=== PATIENT | female | born 1935 | race African-American/Black ===

== ENCOUNTER 2019-07-30 09:52 | Emergency (ER) | payer MEDICARE, BC ==
[2019-07-30] MEDS ORDERED: HYDROcodone/Acetaminophen 5/325 mg Tablet ONE (11:53)
--- NOTE | 2019-08-01 07:28 | RAD ---
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 There is no evidence of airspace density, pulmonary edema , or pneumothorax. There is no cardiomegaly or pleural effusion. Subsegmental atelectasis or pulmonary scar at anterior segment of left upper lobe or lingula. IMPRESSION: 1) No significant acute cardiopulmonary findings. 2) ectasia of thoracic aorta. 3)Subsegmental atelectasis or pulmonary scar at anterior segment of left upper lobe or lingula.
== END 2019-07-30 13:13 | disposition home or self-care (01) ==
LOC: ERS 09:52
DX: M10.9 Gout, unspecified (principal); R05 Cough; I10 Essential (primary) hypertension; Z79.899 Other long term (current) drug therapy; Z79.84 Long term (current) use of oral hypoglycemic drugs
CPT/HCPCS: 71046

== ENCOUNTER 2019-08-18 09:18 | Emergency (ER) | payer MEDICARE, BC ==
[2019-08-18] MEDS ORDERED: HYDROcodone/Acetaminophen 5/325 mg Tablet ONE (12:51)
--- NOTE | 2019-08-18 13:20 | RAD ---
EXAM: Left foot 3 views: HISTORY: Pain and swelling, history of gout COMPARISON: None FINDINGS: Generalized soft tissue swelling with some more focal swelling medially at the first metatarsophalang eal joint. 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 These bony changes could be related to gout. No acute fracture or dislocation or other significant acute osseous abnormality. IMPRESSION: Soft tissue swelling. No acute fracture or dislocation.
== END 2019-08-18 13:40 | disposition home or self-care (01) ==
LOC: ERS 09:18
DX: M10.9 Gout, unspecified (principal); E11.9 Type 2 diabetes mellitus without complications; I10 Essential (primary) hypertension; Z79.899 Other long term (current) drug therapy; Z79.84 Long term (current) use of oral hypoglycemic drugs

== ENCOUNTER 2023-07-04 16:33 | Inpatient (IN) | payer BC, MEDICARE, SELFPAY ==
[~2023-07-04 16:33] MED LIST: Iopamidol-370 76% 500 ML MDV (1 ML CHARGE) ONE
[2023-07-04 17:37] LABS: #Eosinphils 0.1 thou/uL (0.0-0.7); #Monocytes 0.9 thou/uL (0.11-0.59); #Neutrophils 9.6 thou/uL (1.40-6.50); %Basophils 0.1 % (0.0-1.0); %Eosinophils 0.4 % (0.0-10.0); %Lymphocytes 11.4 % (21.0-51.0); %Monocytes 7.5 % (0.0-10.0); %Neutrophils 80.1 % (42.0-75.0); Hematocrit 30.7 % (36.0-47.0); Hemoglobin 10.4 g/dL (12.0-16.0); Mean Corpuscular HGB CONC 33.9 g/dL (32.0-36.0); Mean Corpuscular Hemoglobin 28.3 pg (27.0-31.0); Mean Corpuscular Volume 83.4 fl (78.0-98.0); Mean Platelet Volume 10.3 fL (7.4-10.4); Platelet Count 235 10x3/uL (130-400); RBC Distribution Width 14.2 % (11.5-14.5); Red Blood Cell (RBC) Count 3.68 mill/uL (4.20-5.40)
[2023-07-04 18:03] LABS: Troponin I 0.051 ng/mL (< 0.028)
[2023-07-04 18:05] LABS: ALT (SGPT) 7 U/L (8-55); AST (SGOT) 22 U/L (5-34); Albumin 3.8 g/dL (3.4-4.8); Alkaline Phosphatase 86 U/L (40-110); Anion Gap 16 mmol/L (10-20); BUN (Urea Nitrogen) 18 mg/dL (9.8-20.1); Bilirubin, Total 0.6 mg/dL (0.2-1.2); Calc. Creatinine Clearance 0 mL/min (70-130); Calcium 8.7 mg/dL (7.8-10.44); Carbon Dioxide 25 mmol/L (23-31); Chloride 96 mmol/L (98-107); Estimated GFR 33; Globulin 4.3 g/dL (2.4-3.5); Glucose 339 mg/dL (83-110); Lipase 7 U/L (8-78); Potassium 3.5 mmol/L (3.5-5.1); Protein, Total 8.1 g/dL (5.8-8.1); Sodium 133 mmol/L (136-145)
[2023-07-04] MEDS ORDERED: Acetaminophen 500 MG TAB ONE (18:29)
[2023-07-04] MEDS ORDERED: cefTRIAXone (ROCEPHIN) 2 GM VIAL ONE (18:29)
[2023-07-04] MEDS ORDERED: Azithromycin 500 MG VIAL ONE (18:30)
[2023-07-04 19:46] LABS: SARS-CoV-2 NAA Rapid Test Not Detected (NotDetected)
[2023-07-04] MEDS ORDERED: Aspirin Chewable 81 MG TAB ONE (19:48)
[2023-07-04] MEDS ORDERED: Labetalol HCl 100 MG/20 ML VIAL ONE (19:49)
[2023-07-04] MEDS ORDERED: Dextrose 50% Abboject 50 ML SYRINGE SLOW IVP PRN (19:58)
[2023-07-04] MEDS ORDERED: Glucagon 1 MG/ML KIT IM PRN (19:58)
[2023-07-04] MEDS ORDERED: Dextrose 5% in Water 1,000 ML IV PRN (19:58)
[2023-07-04] MEDS ORDERED: Acetaminophen 325 MG TAB PO PRN (20:00)
[2023-07-04] MEDS ORDERED: Ondansetron ODT 4 MG TAB SL PRN (20:00)
[2023-07-04] MEDS ORDERED: Ondansetron PF 4 MG/2 ML Vial IVP PRN (20:00)
[2023-07-04] MEDS ORDERED: Ipratropium/Albuterol 3 ML NEB ONE (20:03)
[2023-07-04] MEDS ORDERED: Sodium Chloride 0.9% 1,000 ML IV SCH (20:15)
[2023-07-05] MEDS ORDERED: Ipratropium/Albuterol 3 ML NEB ONE ×3 (00:19→13:31)
[2023-07-05] MEDS: Ipratropium/Albuterol 3 ML NEB NEB SCH ×4 (00:21→19:08)
[2023-07-05 00:28] LABS: Critical Call Chem Troponin I NUR.SM26@0028; Troponin I 0.328 ng/mL (< 0.028)
[2023-07-05 00:34] LABS: Bacteria/HPF None Seen HPF (None Seen); Bilirubin Negative (Negative); Blood, Urine Negative (Negative); CAUTI Indications for Culture Alt mental st,lethar; Clarity Clear (Clear); Glucose, Urine (Dipstick) 30 mg/dL (Negative); Ketone, Urine Negative (Negative); Leukocyte Negative Leu/uL (Negative); Nitrite Negative (Negative); Protein, Urine (Dipstick) 30 mg/dL (Neg-Trace); RBC/HPF 0-3 HPF (0-3); Specific Gravity, Urine 1.016 (1.002-1.036); Squamous Epithelial 0-3 HPF (0-3); Urobilinogen Normal mg/dL (Less than 2); WBC/HPF 0-3 HPF (0-3); pH, Urine 6.5 (5.0-9.0)
[2023-07-05 00:36] LABS: Urine Culture Reflex No No
[2023-07-05 01:16] VITALS: BMI 34.4
[2023-07-05] MEDS ORDERED: Heparin 5,000 UNITS/ML VIAL ONE (02:31)
[2023-07-05] MEDS: Heparin 5,000 UNITS/ML VIAL SC SCH ×3 (02:48→22:18)
[2023-07-05 04:05] LABS: #Eosinphils 0.1 thou/uL (0.0-0.7); #Monocytes 1.1 thou/uL (0.11-0.59); #Neutrophils 8.5 thou/uL (1.40-6.50); %Basophils 0.1 % (0.0-1.0); %Eosinophils 0.5 % (0.0-10.0); %Lymphocytes 16.8 % (21.0-51.0); %Monocytes 9.8 % (0.0-10.0); %Neutrophils 72.4 % (42.0-75.0); Hematocrit 27.1 % (36.0-47.0); Hemoglobin 9.1 g/dL (12.0-16.0); Mean Corpuscular HGB CONC 33.6 g/dL (32.0-36.0); Mean Corpuscular Volume 83.4 fl (78.0-98.0); Mean Platelet Volume 9.7 fL (7.4-10.4); Platelet Count 196 10x3/uL (130-400); RBC Distribution Width 14.2 % (11.5-14.5); Red Blood Cell (RBC) Count 3.25 mill/uL (4.20-5.40); White Blood Cell (WBC) Count 11.7 10x3/uL (4.8-10.8)
[2023-07-05 04:29] LABS: Anion Gap 13 mmol/L (10-20); BUN (Urea Nitrogen) 15 mg/dL (9.8-20.1); Calc. Creatinine Clearance 46 mL/min (70-130); Calcium 7.9 mg/dL (7.8-10.44); Carbon Dioxide 27 mmol/L (23-31); Chloride 99 mmol/L (98-107); Estimated GFR 45; Glucose 240 mg/dL (83-110); Potassium 3.7 mmol/L (3.5-5.1); Sodium 135 mmol/L (136-145)
[2023-07-05 04:41] LABS: Critical Call Chem Troponin I RESULT DECREASING; Troponin I 0.256 ng/mL (< 0.028)
[2023-07-05] MEDS ORDERED: HumaLOG 300 UNITS/3 ML VIAL ONE (09:29)
[2023-07-05] MEDS: HumaLOG 300 UNITS/3 ML VIAL SC PRN ×2 (09:30→19:47)
[2023-07-05] MEDS ORDERED: Ondansetron PF 4 MG/2 ML Vial ONE (15:12)
[2023-07-05] MEDS ORDERED: Senokot S 8.6-50 MG TAB PO PRN (16:07)
[2023-07-05] MEDS ORDERED: cloNIDine 0.3mg/24 Hour PATCH TD SCH (17:00)
[2023-07-05] MEDS: cefTRIAXone\\ROCEPHIN 1 GM in Sodium Chloride 0.9% 100 ML IVPB SCH (18:32)
[2023-07-05] MEDS: Azithromycin 500 MG in Sodium Chloride 0.9% 250 ML 250 ML IVPB SCH (20:28)
[2023-07-05] MEDS: Doxazosin Mesylate 4 MG TAB PO SCH (22:17)
[2023-07-05] MEDS: Torsemide 20 MG TAB PO SCH (22:18)
[2023-07-06] MEDS: Ipratropium/Albuterol 3 ML NEB NEB SCH ×5 (01:10→23:32)
[2023-07-06 04:44] LABS: #Eosinphils 0.2 thou/uL (0.0-0.7); #Monocytes 0.6 thou/uL (0.11-0.59); #Neutrophils 4.7 thou/uL (1.40-6.50); %Basophils 0.1 % (0.0-1.0); %Eosinophils 2.4 % (0.0-10.0); %Lymphocytes 23.7 % (21.0-51.0); %Neutrophils 65.5 % (42.0-75.0); Hematocrit 24.4 % (36.0-47.0); Mean Corpuscular HGB CONC 32.8 g/dL (32.0-36.0); Mean Corpuscular Hemoglobin 27.9 pg (27.0-31.0); Mean Platelet Volume 10.4 fL (7.4-10.4); Platelet Count 191 10x3/uL (130-400); RBC Distribution Width 14.6 % (11.5-14.5); Red Blood Cell (RBC) Count 2.87 mill/uL (4.20-5.40); White Blood Cell (WBC) Count 7.2 10x3/uL (4.8-10.8)
[2023-07-06 05:04] LABS: Anion Gap 13 mmol/L (10-20); BUN (Urea Nitrogen) 11 mg/dL (9.8-20.1); Calc. Creatinine Clearance 44 mL/min (70-130); Calcium 7.5 mg/dL (7.8-10.44); Carbon Dioxide 24 mmol/L (23-31); Chloride 103 mmol/L (98-107); Estimated GFR 45; Glucose 218 mg/dL (83-110); Potassium 3.4 mmol/L (3.5-5.1); Sodium 137 mmol/L (136-145)
[2023-07-06] MEDS: HumaLOG 300 UNITS/3 ML VIAL SC PRN ×3 (07:19→19:02)
[2023-07-06] MEDS ORDERED: Potassium Chloride 20 MEQ TAB PO SCH (08:30)
[2023-07-06] MEDS: Atorvastatin Calcium 40 MG TAB PO SCH (09:32)
[2023-07-06] MEDS: Aspirin 81 mg Enteric Coated Tablet PO SCH (09:32)
[2023-07-06] MEDS: Amlodipine 10 MG TAB PO SCH (09:32)
[2023-07-06] MEDS: Calcitriol 0.25 MCG CAP PO SCH (09:36)
[2023-07-06] MEDS: Cholecalciferol 1,000 UNITS (25 MCG) TAB PO SCH (09:36)
[2023-07-06] MEDS: Losartan 25 MG TAB PO SCH (09:36)
[2023-07-06] MEDS: Torsemide 20 MG TAB PO SCH ×2 (09:36→20:56)
[2023-07-06] MEDS: Ferrous Sulfate 325 MG TAB PO SCH (09:36)
[2023-07-06] MEDS: Heparin 5,000 UNITS/ML VIAL SC SCH ×2 (09:37→20:56)
[2023-07-06] MEDS ORDERED: hydrALAZINE 20 MG/ML VIAL SLOW IVP PRN (16:09)
[2023-07-06] MEDS ORDERED: Spironolactone 25 MG TAB PO SCH (17:00)
[2023-07-06] MEDS: cefTRIAXone\\ROCEPHIN 1 GM in Sodium Chloride 0.9% 100 ML IVPB SCH (17:07)
[2023-07-06] MEDS: Azithromycin 500 MG in Sodium Chloride 0.9% 250 ML 250 ML IVPB SCH (20:56)
[2023-07-06] MEDS: Doxazosin Mesylate 4 MG TAB PO SCH (20:56)
[2023-07-07] MEDS: GUAIFENESIN SF SOLN 200 MG/10 ML UDCUP PO PRN ×3 (00:44→20:52)
[2023-07-07 06:24] LABS: #Eosinphils 0.2 thou/uL (0.0-0.7); #Monocytes 0.6 thou/uL (0.11-0.59); #Neutrophils 4.6 thou/uL (1.40-6.50); %Basophils 0.1 % (0.0-1.0); %Eosinophils 2.7 % (0.0-10.0); %Lymphocytes 22.3 % (21.0-51.0); %Monocytes 8.8 % (0.0-10.0); %Neutrophils 65.8 % (42.0-75.0); Hematocrit 23.2 % (36.0-47.0); Hemoglobin 7.7 g/dL (12.0-16.0); Mean Corpuscular HGB CONC 33.2 g/dL (32.0-36.0); Mean Corpuscular Hemoglobin 28.5 pg (27.0-31.0); Mean Corpuscular Volume 85.9 fl (78.0-98.0); Mean Platelet Volume 10.5 fL (7.4-10.4); Platelet Count 208 10x3/uL (130-400); RBC Distribution Width 14.6 % (11.5-14.5)
[2023-07-07 06:46] LABS: Anion Gap 10 mmol/L (10-20); BUN (Urea Nitrogen) 12 mg/dL (9.8-20.1); Calc. Creatinine Clearance 43 mL/min (70-130); Calcium 7.7 mg/dL (7.8-10.44); Carbon Dioxide 26 mmol/L (23-31); Chloride 103 mmol/L (98-107); Estimated GFR 43; Glucose 202 mg/dL (83-110); Sodium 135 mmol/L (136-145)
[2023-07-07] MEDS: Calcitriol 0.25 MCG CAP PO SCH (09:05)
[2023-07-07] MEDS: Aspirin 81 mg Enteric Coated Tablet PO SCH (09:05)
[2023-07-07] MEDS: Amlodipine 10 MG TAB PO SCH (09:05)
[2023-07-07] MEDS: Losartan 25 MG TAB PO SCH (09:06)
[2023-07-07] MEDS: Spironolactone 25 MG TAB PO SCH (09:07)
[2023-07-07] MEDS: Cholecalciferol 1,000 UNITS (25 MCG) TAB PO SCH (09:07)
[2023-07-07] MEDS: Torsemide 20 MG TAB PO SCH ×2 (09:07→20:56)
[2023-07-07] MEDS: Ferrous Sulfate 325 MG TAB PO SCH (09:07)
[2023-07-07] MEDS: Benzonatate 100 MG CAP PO PRN ×2 (09:08→16:44)
[2023-07-07] MEDS: Atorvastatin Calcium 40 MG TAB PO SCH (09:08)
[2023-07-07] MEDS: Heparin 5,000 UNITS/ML VIAL SC SCH ×2 (09:08→20:53)
[2023-07-07] MEDS ORDERED: CALCIUM GLUC 1 GM/NS 50 ML 1 GM in Premix 1 BAG IVPB SCH (09:45)
[2023-07-07] MEDS ORDERED: Gabapentin 300 MG CAP PO SCH (16:30)
[2023-07-07] MEDS: cefTRIAXone\\ROCEPHIN 1 GM in Sodium Chloride 0.9% 100 ML IVPB SCH (16:44)
[2023-07-07] MEDS: Sodium Chloride 0.9% 1,000 ML IV SCH ×2 (16:45→21:01)
[2023-07-07] MEDS: Azithromycin 500 MG in Sodium Chloride 0.9% 250 ML 250 ML IVPB SCH (18:24)
[2023-07-07] MEDS: HumaLOG 300 UNITS/3 ML VIAL SC PRN ×2 (18:25→20:53)
[2023-07-07] MEDS: Ipratropium/Albuterol 3 ML NEB EZPAP PRN (18:37)
[2023-07-07] MEDS: Doxazosin Mesylate 4 MG TAB PO SCH (20:52)
[2023-07-07 20:54] LABS: #Eosinphils 0.1 thou/uL (0.0-0.7); #Monocytes 0.8 thou/uL (0.11-0.59); #Neutrophils 6.4 thou/uL (1.40-6.50); %Basophils 0.1 % (0.0-1.0); %Eosinophils 1.3 % (0.0-10.0); %Monocytes 8.9 % (0.0-10.0); %Neutrophils 74.2 % (42.0-75.0); Hematocrit 22.7 % (36.0-47.0); Hemoglobin 7.8 g/dL (12.0-16.0); Mean Corpuscular HGB CONC 34.4 g/dL (32.0-36.0); Mean Corpuscular Hemoglobin 28.6 pg (27.0-31.0); Mean Platelet Volume 9.4 fL (7.4-10.4); Platelet Count 218 10x3/uL (130-400); RBC Distribution Width 14.4 % (11.5-14.5); Red Blood Cell (RBC) Count 2.73 mill/uL (4.20-5.40); White Blood Cell (WBC) Count 8.6 10x3/uL (4.8-10.8)
[2023-07-07 20:59] LABS: Mean Corpuscular Volume 83.2 fl (78.0-98.0)
[2023-07-07 21:18] LABS: Anion Gap 11 mmol/L (10-20); BUN (Urea Nitrogen) 12 mg/dL (9.8-20.1); Calc. Creatinine Clearance 48 mL/min (70-130); Calcium 8.2 mg/dL (7.8-10.44); Carbon Dioxide 26 mmol/L (23-31); Chloride 97 mmol/L (98-107); Estimated GFR 48; Glucose 312 mg/dL (83-110); Sodium 130 mmol/L (136-145)
[2023-07-08 05:58] LABS: #Eosinphils 0.1 thou/uL (0.0-0.7); #Monocytes 0.8 thou/uL (0.11-0.59); #Neutrophils 5.5 thou/uL (1.40-6.50); %Basophils 0.1 % (0.0-1.0); %Eosinophils 1.5 % (0.0-10.0); %Lymphocytes 19.1 % (21.0-51.0); %Monocytes 9.8 % (0.0-10.0); %Neutrophils 69.1 % (42.0-75.0); Hemoglobin 7.6 g/dL (12.0-16.0); Mean Corpuscular Hemoglobin 27.9 pg (27.0-31.0); Mean Corpuscular Volume 84.6 fl (78.0-98.0); Mean Platelet Volume 10.2 fL (7.4-10.4); Platelet Count 244 10x3/uL (130-400); RBC Distribution Width 14.2 % (11.5-14.5); Red Blood Cell (RBC) Count 2.72 mill/uL (4.20-5.40)
[2023-07-08] MEDS: HumaLOG 300 UNITS/3 ML VIAL SC PRN ×4 (06:10→21:02)
[2023-07-08 06:30] LABS: Anion Gap 14 mmol/L (10-20); BUN (Urea Nitrogen) 11 mg/dL (9.8-20.1); Calc. Creatinine Clearance 48 mL/min (70-130); Carbon Dioxide 24 mmol/L (23-31); Chloride 100 mmol/L (98-107); Estimated GFR 48; Glucose 186 mg/dL (83-110); Potassium 4.1 mmol/L (3.5-5.1); Sodium 134 mmol/L (136-145)
[2023-07-08] MEDS: Spironolactone 25 MG TAB PO SCH (08:55)
[2023-07-08] MEDS: Benzonatate 100 MG CAP PO PRN (08:55)
[2023-07-08] MEDS: Heparin 5,000 UNITS/ML VIAL SC SCH ×2 (08:55→21:01)
[2023-07-08] MEDS: Ferrous Sulfate 325 MG TAB PO SCH (08:56)
[2023-07-08] MEDS: Atorvastatin Calcium 40 MG TAB PO SCH (08:56)
[2023-07-08] MEDS: Gabapentin 300 MG CAP PO SCH ×2 (08:56→21:01)
[2023-07-08] MEDS: Cholecalciferol 1,000 UNITS (25 MCG) TAB PO SCH (08:56)
[2023-07-08] MEDS: Amlodipine 10 MG TAB PO SCH (08:56)
[2023-07-08] MEDS: Calcitriol 0.25 MCG CAP PO SCH (08:57)
[2023-07-08] MEDS: Torsemide 20 MG TAB PO SCH ×2 (08:57→21:01)
[2023-07-08] MEDS: Aspirin 81 mg Enteric Coated Tablet PO SCH (08:57)
[2023-07-08] MEDS: Losartan 25 MG TAB PO SCH (08:57)
[2023-07-08] MEDS: GUAIFENESIN SF SOLN 200 MG/10 ML UDCUP PO PRN (11:37)
[2023-07-08 14:29] LABS: Hematocrit 24.6 % (36.0-47.0); Hemoglobin 8.1 g/dL (12.0-16.0)
[2023-07-08] MEDS: cefTRIAXone\\ROCEPHIN 1 GM in Sodium Chloride 0.9% 100 ML IVPB SCH (17:03)
[2023-07-08] MEDS: Ipratropium/Albuterol 3 ML NEB EZPAP PRN (19:01)
[2023-07-08] MEDS: Doxazosin Mesylate 4 MG TAB PO SCH (21:01)
[2023-07-09 04:38] LABS: Hematocrit 24.2 % (36.0-47.0); Hemoglobin 7.9 g/dL (12.0-16.0); Mean Corpuscular HGB CONC 32.6 g/dL (32.0-36.0); Mean Corpuscular Hemoglobin 27.4 pg (27.0-31.0); Mean Platelet Volume 10.1 fL (7.4-10.4); Platelet Count 278 10x3/uL (130-400); RBC Distribution Width 14.3 % (11.5-14.5); Red Blood Cell (RBC) Count 2.88 mill/uL (4.20-5.40); White Blood Cell (WBC) Count 7.6 10x3/uL (4.8-10.8)
[2023-07-09] MEDS: HumaLOG 300 UNITS/3 ML VIAL SC PRN ×4 (05:45→21:16)
[2023-07-09] MEDS: Calcitriol 0.25 MCG CAP PO SCH (09:21)
[2023-07-09] MEDS: Spironolactone 25 MG TAB PO SCH (09:22)
[2023-07-09] MEDS: Losartan 25 MG TAB PO SCH (09:22)
[2023-07-09] MEDS: Torsemide 20 MG TAB PO SCH ×2 (09:23→20:09)
[2023-07-09] MEDS: Amlodipine 10 MG TAB PO SCH (09:23)
[2023-07-09] MEDS: Ferrous Sulfate 325 MG TAB PO SCH (09:23)
[2023-07-09] MEDS: Aspirin 81 mg Enteric Coated Tablet PO SCH (09:23)
[2023-07-09] MEDS: Atorvastatin Calcium 40 MG TAB PO SCH (09:24)
[2023-07-09] MEDS: Heparin 5,000 UNITS/ML VIAL SC SCH ×2 (09:24→20:07)
[2023-07-09] MEDS: Cholecalciferol 1,000 UNITS (25 MCG) TAB PO SCH (09:24)
[2023-07-09] MEDS: Gabapentin 300 MG CAP PO SCH ×2 (09:25→20:09)
[2023-07-09] MEDS: cefTRIAXone\\ROCEPHIN 1 GM in Sodium Chloride 0.9% 100 ML IVPB SCH (16:49)
[2023-07-09] MEDS: Doxazosin Mesylate 4 MG TAB PO SCH (20:10)
[2023-07-09] MEDS: GUAIFENESIN SF SOLN 200 MG/10 ML UDCUP PO PRN (20:12)
[2023-07-10 04:41] LABS: Hematocrit 22.5 % (36.0-47.0); Hemoglobin 7.4 g/dL (12.0-16.0); Mean Corpuscular HGB CONC 32.9 g/dL (32.0-36.0); Mean Corpuscular Hemoglobin 27.7 pg (27.0-31.0); Mean Corpuscular Volume 84.3 fl (78.0-98.0); Platelet Count 302 10x3/uL (130-400); RBC Distribution Width 14.1 % (11.5-14.5); Red Blood Cell (RBC) Count 2.67 mill/uL (4.20-5.40); White Blood Cell (WBC) Count 7.7 10x3/uL (4.8-10.8)
[2023-07-10] MEDS: HumaLOG 300 UNITS/3 ML VIAL SC PRN ×3 (06:45→17:28)
[2023-07-10] MEDS: GUAIFENESIN SF SOLN 200 MG/10 ML UDCUP PO PRN ×2 (06:52→16:19)
[2023-07-10] MEDS: Ipratropium/Albuterol 3 ML NEB EZPAP PRN ×2 (08:38→14:14)
[2023-07-10] MEDS: Calcitriol 0.25 MCG CAP PO SCH (09:58)
[2023-07-10] MEDS: Spironolactone 25 MG TAB PO SCH (09:58)
[2023-07-10] MEDS: Gabapentin 300 MG CAP PO SCH (09:58)
[2023-07-10] MEDS: Benzonatate 100 MG CAP PO PRN ×2 (09:58→16:19)
[2023-07-10] MEDS: Losartan 25 MG TAB PO SCH (09:58)
[2023-07-10] MEDS: Aspirin 81 mg Enteric Coated Tablet PO SCH (09:59)
[2023-07-10] MEDS: Cholecalciferol 1,000 UNITS (25 MCG) TAB PO SCH (09:59)
[2023-07-10] MEDS: Torsemide 20 MG TAB PO SCH (09:59)
[2023-07-10] MEDS: Amlodipine 10 MG TAB PO SCH (09:59)
[2023-07-10] MEDS: Atorvastatin Calcium 40 MG TAB PO SCH (09:59)
[2023-07-10] MEDS: Ferrous Sulfate 325 MG TAB PO SCH (09:59)
[2023-07-10] MEDS: Heparin 5,000 UNITS/ML VIAL SC SCH (09:59)
[2023-07-10] MEDS: cefTRIAXone\\ROCEPHIN 1 GM in Sodium Chloride 0.9% 100 ML IVPB SCH (16:13)
[2023-07-10 17:01] VITALS: BP 142/68; TEMP 98.1
== END 2023-07-10 17:40 | disposition home or self-care (01) | DRG 871 ==
LOC: ERS 16:33 → ERHOLD 19:52 → 2NO 07-05 15:26
PROVIDERS: ADMIT Internal Medicine; ATTEND Internal Medicine
DX: A41.9 Sepsis, unspecified organism (principal); J18.9 Pneumonia, unspecified organism; J96.01 Acute respiratory failure with hypoxia; N17.9 Acute kidney failure, unspecified
CPT/HCPCS: 36415; 36416; 71045; 71275; 74018; 80048; 80053; 81001; 83036; 83605; 83690; 83880; 84484; 85025; 85027; 87040; 87070; 87086; 87205; 93005; 94640; 96365; 96367; 96375; J0456; J0613; J0696; J1644; J1815; J2405; J3490; J7050; J7620; Q9967